=== PATIENT | male | born 1955 | race Caucasian/White ===

== ENCOUNTER 2023-05-14 07:08 | Outpatient (RCR) | payer BC, MEDICARE, SELFPAY ==
[2023-05-06 08:37] LABS: HDL Cholesterol 43 mg/dl; LDL Cholesterol, Calculated 37 mg/dl; Total Cholesterol 101 mg/dl (50-199); Triglyceride 109 mg/dl (10-149); Very Low Density Lipoprotein 21 mg/dl (0-30)
== END 2023-05-14 23:59 | disposition home or self-care (01) ==
LOC: CRHB 07:08
DX: I25.10 Atherosclerotic heart disease of native coronary artery without angina pectoris (principal); Z95.3 Presence of xenogenic heart valve; Z95.1 Presence of aortocoronary bypass graft
CPT/HCPCS: 36415; 80061; 93797; 93798; G0422; G0423

== ENCOUNTER 2023-06-13 06:35 | Outpatient (RCR) | payer BC, MEDICARE, SELFPAY | END 2023-06-13 23:59 | disposition home or self-care (01) | LOC: CRHB 06:35 | PROVIDERS: ATTENDING PHYSICIAN Thoracic Surgery (Cardiothoracic Vascular Surgery); FAMILY PHYSICIAN Family Medicine | DX: Z95.1 Presence of aortocoronary bypass graft (principal); Z95.3 Presence of xenogenic heart valve | CPT/HCPCS: 93797; 93798; G0422; G0423 ==

== ENCOUNTER 2023-07-14 06:32 | Outpatient (RCR) | payer BC, MEDICARE, SELFPAY | END 2023-07-14 23:59 | disposition home or self-care (01) | LOC: CRHB 06:32 | PROVIDERS: FAMILY PHYSICIAN Family Medicine | DX: Z95.3 Presence of xenogenic heart valve (principal); Z95.1 Presence of aortocoronary bypass graft | CPT/HCPCS: G0422; G0423 ==

== ENCOUNTER 2023-07-21 16:57 | Outpatient (RCR) | payer BC, MEDICARE, SELFPAY | END 2023-07-21 23:59 | disposition home or self-care (01) | LOC: CRHB 16:57 | PROVIDERS: ATTENDING PHYSICIAN Internal Medicine | DX: Z95.1 Presence of aortocoronary bypass graft (principal); Z95.4 Presence of other heart-valve replacement; Z95.3 Presence of xenogenic heart valve | CPT/HCPCS: G0422; G0423 ==